=== PATIENT | female | born 1965 | race African-American/Black ===

== ENCOUNTER 2019-12-04 22:14 | Emergency (ER) | payer OTHER ==
[2019-12-04] MEDS ORDERED: NA CHLORIDE 0.9% 1,000 ML ONE (22:50)
[2019-12-04] MEDS ORDERED: ONDANSETRON 4 MG/2 ML VIAL ONE (22:50)
[2019-12-04] MEDS ORDERED: FENTANYL CITR 100 MCG/2 ML ONE (22:51)
[2019-12-04 23:18] LABS: ALT/SGPT 205 U/L (12-78); AST/SGOT 64 U/L (15-37); Albumin 3.8 g/dL (3.4-5.0); Alkaline Phosphatase 133 U/L (45-117); BUN Blood Urea Nitrogen 10 mg/dL (7-18); Bicarbonate 31 mmol/L (21-32); Bilirubin Direct 0.3 mg/dL (0-0.2); Bilirubin Total 0.5 mg/dL (0.2-1.0); Glucose Level 124 mg/dL (74-106); Lipase 109 U/L (73-393); Potassium 4.1 mmol/L (3.5-5.1); Sodium Level 138 mmol/L (136-145)
[2019-12-04 23:44] LABS: Absolute Lymphocytes (CBC) 1.4 K/uL (0.7-4.9); Basophils % 0.4 % (0-1.3); Hematocrit 42.6 % (36.0-45.0); MPV 9.9 fL (7.6-11.3); RBC Red Blood Cell Count 5.88 M/uL (3.86-4.86)
[2019-12-05] MEDS ORDERED: FENTANYL CITR 100 MCG/2 ML ONE (01:34)
[2019-12-05] MEDS ORDERED: KETOROLAC 30 MG/ML INJ ONE (01:44)
--- NOTE | 2019-12-05 02:07 | EDPHYS ---
Physician Documentation [facility] Name: Milagros Blake Age: 54 yrs Sex: Female : 1965 Arrival Date: 12/04/2019 Time: 22:15 Bed 19 Private MD: ED Physician Doyle Cedillo HPI: 12/03 22:35 This 54 yrs old Black Female presents to ER via Ambulatory with complaints of Hernia jmm Pain. 22:35 The patient presents with abdominal pain in the epigastric area. Onset: The jmm symptoms/episode began/occurred gradually, 2 week(s) ago. The symptoms do not radiate. Associated signs and symptoms: Pertinent positives: nausea and vomiting, Pertinent negatives: diarrhea. The symptoms are described as achy. Modifying factors: The symptoms are alleviated by nothing, the symptoms are aggravated by. This is a 54 year old female with a history of hernia that presents to the ED with complaints of 2 weeks of ongoing epigatric abdominal pain. Pain has progressively worsened. Denies diarrhea. 1 episode of vomiting. . 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 - Social history:: Patient/guardian denies using alcohol, street drugs, tobacco products, Smoking status: Patient/guardian denies using. ROS: 22:35 Constitutional: Negative for fever, chills, and weight loss, Cardiovascular: Negative jmm for chest pain, palpitations, and edema, Respiratory: Negative for shortness of breath, cough, wheezing, and pleuritic chest pain. 22:35 Abdomen/GI: Positive for vomiting. 22:35 Back: Negative for radiated pain. 22:35 All other systems are negative. Exam: 22:35 Head/Face: atraumatic. Eyes: EOMI, no conjunctival erythema appreciated ENT: Moist jmm Mucus Membranes Neck: Trachea midline, Supple Chest/axilla: Normal chest wall appearance and motion. Cardiovascular: Regular rate and rhythm. No edema appreciated Respiratory: Normal respirations, no respiratory distress appreciated 22:35 Back: Normal ROM Skin: General appearance color normal MS/ Extremity: Moves all extremities, no obvious deformities appreciated, no edema noted to the lower extremities Neuro: Awake and alert, normal gait Psych: Behavior is normal, Mood is normal, Patient is cooperative and pleasant 22:35 Constitutional: The patient appears alert, awake, uncomfortable. 22:35 Abdomen/GI: Inspection: abdomen appears normal, Bowel sounds: normal, Palpation: soft, moderate abdominal tenderness, in the right upper quadrant. Vital Signs: 22:22 BP 131 / 100; Pulse 83; Resp 18; Temp 99.2; Pulse Ox 97% ; Pain 9/10; ll1 22:23 BP 131 / 100; Pulse 83; Resp 18; Temp 99.2; Pulse Ox 97% ; Weight 95.25 kg; Height 5 jv1 ft. 6 in. (167.64 cm); Pain 8/10; 12/04 00:42 BP 157 / 93; Pulse 85; Resp 18; Temp 98.9; Pulse Ox 99% ; Pain 7/10; jv1 01:40 BP 130 / 75; Pulse 88; Resp 18; Temp 98.5; Pulse Ox 98% ; jv1 02:56 BP 128 / 79; Pulse 89; Resp 18; Temp 98.5; Pulse Ox 99% on R/A; Pain 2/10; jv1 12/03 22:23 Body Mass Index 33.89 (95.25 kg, 167.64 cm) jv1 MDM: 12/03 22:[address] [facility] 12/04 02:03 Data reviewed: vital signs, nurses notes. Counseling: I had a detailed discussion with [facility] the patient and/or guardian regarding: the historical points, exam findings, and any diagnostic results supporting the discharge/admit diagnosis, lab results, radiology results, the need to transfer to another facility. ED course: I discussed the patient with Dr. Schumacher whom advised transfer due to no GI services at this hospital. I discussed the need for transfer with the patient whom would prefer [place] opposed to [facility] [place]. . 12/03 22:33 Order name: Basic Metabolic Panel; Complete Time: 23:31 [facility] 12/03 22:33 Order name: CBC with Diff; Complete Time: 23:46 [facility] 12/03 22:33 Order name: Creatinine for Radiology; Complete Time: 23:31 [facility] 12/03 22:33 Order name: Hepatic Function; Complete Time: 23:31 [facility] 12/03 22:33 Order name: Lipase; Complete Time: 23:31 [facility] 12/03 22:33 Order name: US Abdomen Limited [facility] 12/03 22:33 Order name: IV Saline Lock; Complete Time: 22:56 [facility] 12/03 22:33 Order name: Labs collected and sent; Complete Time: 22:56 [facility] 12/03 22:35 Order name: CT Abd/Pelvis - IV Contrast Only [facility] 12/03 22:33 Order name: Urine Dipstick-Ancillary (obtain specimen); Complete Time: 01:37 [facility] Administered Medications: 12/03 22:54 Drug: Zofran (Ondansetron) 4 mg {Note: infused more than 2 mins.} Route: IVP; Site: jv1 right antecubital; 23:51 Follow up: Response: No adverse reaction; Nausea is decreased jv1 22:54 Drug: fentaNYL (PF) 50 mcg Route: IVP; Site: right antecubital; jv1 23:51 Follow up: Response: No adverse reaction; Pain is decreased jv1 22:54 Drug: NS 0.9% 1000 ml Route: IV; Rate: 1 bolus; Site: right antecubital; jv1 12/04 00:41 Follow up: Response: No adverse reaction; IV Status: Completed infusion jv1 01:30 Drug: fentaNYL (PF) 50 mcg Route: IVP; Site: right antecubital; jv1 02:39 Follow up: Response: No adverse reaction; Pain is decreased jv1 01:45 Drug: Ketorolac 30 mg Route: IVP; Site: right antecubital; jv1 02:39 Follow up: Response: No adverse reaction; Pain is decreased jv1 Disposition: 07:41 Co-signature as Attending Physician, Doyle Cedillo MD I agree with the assessment and [facility] plan of care. Disposition: 12/05/19 02:06 Transfer ordered to Other Acute Care Facility. Diagnosis is Acute cholecystitis. - Reason for transfer: Higher level of care. - Accepting physician is FLOYD Manzanares. - Condition is Stable. - Problem is new. - Symptoms are unchanged. Signatures: Dispatcher [employer] Doyle Garcia MD MD cha Mickail, Joel, PA PA [facility] Jackie Castañeda RN RN jv1 Eddi Chan RN RN ll1 Corrections: (The following items were deleted from the chart) 03:34 02:06 12/05/2019 02:06 Transfer ordered to Other Acute Care Facility. Diagnosis is jv1 Acute cholecystitis. Reason for transfer: Higher level of care. Accepting physician is FLOYD Manzanares. Condition is Stable. Problem is new. Symptoms are unchanged. teena
--- NOTE | 2019-12-05 02:07 | ER ---
Nurse's Notes [facility] Name: Milagros Blake Age: 54 yrs Sex: Female : 1965 Arrival Date: 12/04/2019 Time: 22:15 Bed 19 Private MD: Diagnosis: Acute cholecystitis Presentation: 12/03 22:22 Chief complaint: Patient states: Upper abdominal pain for 2 weeks. + N/V. States she ll1 believes it is hernia pain. Coronavirus screen: Patient denies fever greater than 100.4F, cough, shortness of breath, or difficulty breathing. Proceed with normal triage process. Ebola Screen: Patient denies travel to an Ebola-affected area in the 21 days before illness onset. Initial Sepsis Screen: Does the patient meet any 2 criteria? No. Patient's initial sepsis screen is negative. Risk Assessment: Do you want to hurt yourself or someone else? Patient reports no desire to harm self or others. 22:22 Method Of Arrival: Ambulatory ll1 22:22 Acuity: LELAND 3 ll1 23:09 Initial Sepsis Screen: Does the patient meet any 2 criteria? No. Patient's initial jv1 sepsis screen is negative. Does the patient have a suspected source of infection? No. Patient's initial sepsis screen is negative. Onset of symptoms was November 21, 2019. 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 - Social history:: Patient/guardian denies using alcohol, street drugs, tobacco products, Smoking status: Patient/guardian denies using. Screenin:24 Abuse screen: Denies threats or abuse. Nutritional screening: No deficits noted. ll1 Tuberculosis screening: No symptoms or risk factors identified. 23:05 Fall Risk None identified. jv1 Assessment: 23:00 General: Appears in no apparent distress. comfortable, well groomed, Behavior is calm, jv1 cooperative, appropriate for age. Pain: Complains of pain in right upper quadrant Pain does not radiate. Pain currently is 8 out of 10 on a pain scale. Quality of pain is described as aching, Pain began two weeks ago. Neuro: Level of Consciousness is awake, alert, obeys commands, Oriented to person, place, time, situation, Appropriate for age Market Director are equal bilaterally Moves all extremities. Full function. Cardiovascular: Denies chest pain, Heart tones S1 S2 present Capillary refill < 3 seconds. Respiratory: Airway is patent Respiratory effort is even, unlabored, Respiratory pattern is regular, symmetrical, Breath sounds are clear bilaterally. GI: Abdomen is round non-distended, Bowel sounds present X 4 quads. Abd is soft Abdomen is tender to palpation in right upper quadrant Reports nausea, vomiting. : No signs and/or symptoms were reported regarding the genitourinary system. EENT: No signs and/or symptoms were reported regarding the EENT system. Derm: No signs and/or symptoms reported regarding the dermatologic system. Musculoskeletal: Capillary refill < 3 seconds. 23:28 Reassessment: instructed on the need for urine sample, pt tried but said she cannot go jv1 yet. 23:51 Reassessment: Patient appears in no apparent distress at this time. No changes from jv1 previously documented assessment. Patient and/or family updated on plan of care and expected duration. Pain level reassessed. Patient is alert, oriented x 3, equal unlabored respirations, skin warm/dry/pink. pt taken to CT Patient states feeling better. 12/04 00:42 Reassessment: Patient appears in no apparent distress at this time. No changes from jv1 previously documented assessment. Patient and/or family updated on plan of care and expected duration. Pain level reassessed. Patient is alert, oriented x 3, equal unlabored respirations, skin warm/dry/pink. Patient states feeling better. 01:40 Reassessment: Patient appears in no apparent distress at this time. No changes from jv1 previously documented assessment. Patient and/or family updated on plan of care and expected duration. Pain level reassessed. Patient is alert, oriented x 3, equal unlabored respirations, skin warm/dry/pink. provider in the room with pt. 02:40 Reassessment: Patient appears in no apparent distress at this time. No changes from jv1 previously documented assessment. Patient and/or family updated on plan of care and expected duration. Pain level reassessed. Patient is alert, oriented x 3, equal unlabored respirations, skin warm/dry/pink. 02:50 Reassessment: called report to Domenico BHAKTA, [facility]. jv1 03:32 Reassessment: Reassessment: EMS came and got the pt for transfer. jv1 Vital Signs: 12/03 22:22 BP 131 / 100; Pulse 83; Resp 18; Temp 99.2; Pulse Ox 97% ; Pain 9/10; ll1 22:23 BP 131 / 100; Pulse 83; Resp 18; Temp 99.2; Pulse Ox 97% ; Weight 95.25 kg; Height 5 jv1 ft. 6 in. (167.64 cm); Pain 8/10; 12/04 00:42 BP 157 / 93; Pulse 85; Resp 18; Temp 98.9; Pulse Ox 99% ; Pain 7/10; jv1 01:40 BP 130 / 75; Pulse 88; Resp 18; Temp 98.5; Pulse Ox 98% ; jv1 02:56 BP 128 / 79; Pulse 89; Resp 18; Temp 98.5; Pulse Ox 99% on R/A; Pain 2/10; jv1 12/03 22:23 Body Mass Index 33.89 (95.25 kg, 167.64 cm) jv1 ED Course: 12/03 22:15 Patient arrived in ED. cl3 22:23 Triage completed. ll1 22:24 [facility] Hamilton [facility] jm 22:24 Doyle Cedillo MD is Attending Physician. jmm 22:24 Arm band placed on Patient placed in an exam room, on a stretcher. ll1 22:50 Inserted saline lock: 20 gauge in right antecubital area, using aseptic technique. ao Blood collected. 23:05 US Abdomen Limited In Process Unspecified. EDMS 23:05 Patient has correct armband on for positive identification. Bed in low position. Call jv1 light in reach. Side rails up X 1. 12/04 00:18 CT Abd/Pelvis - IV Contrast Only In Process Unspecified. EDMS 03:31 No provider procedures requiring assistance completed. Patient transferred, IV remains jv1 in place. Administered Medications: 12/03 22:54 Drug: Zofran (Ondansetron) 4 mg {Note: infused more than 2 mins.} Route: IVP; Site: jv1 right antecubital; 23:51 Follow up: Response: No adverse reaction; Nausea is decreased jv1 22:54 Drug: fentaNYL (PF) 50 mcg Route: IVP; Site: right antecubital; jv1 23:51 Follow up: Response: No adverse reaction; Pain is decreased jv1 22:54 Drug: NS 0.9% 1000 ml Route: IV; Rate: 1 bolus; Site: right antecubital; jv1 12/04 00:41 Follow up: Response: No adverse reaction; IV Status: Completed infusion jv1 01:30 Drug: fentaNYL (PF) 50 mcg Route: IVP; Site: right antecubital; jv1 02:39 Follow up: Response: No adverse reaction; Pain is decreased jv1 01:45 Drug: Ketorolac 30 mg Route: IVP; Site: right antecubital; jv1 02:39 Follow up: Response: No adverse reaction; Pain is decreased jv1 Outcome: 02:06 ER care complete, transfer ordered by . teena 03:31 Transferred by ground EMS to other acute care facility: [facility]. jv1 03:31 Condition: good 03:31 Instructed on the need for transfer. 03:34 Patient left the ED. jv1 Signatures: Dispatcher [employer] EDMS Hector Hamilton PA PA Ivan Aggarwal, RN RN Jackie Barrios RN RN Stacey Meraz cl3 Eddi Chan RN RN ll1 Corrections: (The following items were deleted from the chart) 12/03 23:53 23:28 Reassessment: instructed on the need for urine sample, pt tried but said she jv1 cannot go yet. jv1
[2019-12-05 03:47] VITALS: TEMP 98.5
[2019-12-05 03:48] VITALS: BP 128/79; O2SAT 99
--- NOTE | 2019-12-05 08:37 | RAD REPORT ---
EXAM DESCRIPTION: US - Abdomen Exam Limited - 12/04/2019 11:05 pm CLINICAL HISTORY: Abdominal pain. COMPARISON: None. FINDINGS: Gallstones. The gallbladder wall is not thickened. A gallstone is not seen. The biliary tree is normal caliber. IMPRESSION: Cholelithiasis without evidence of cholecystitis Two mild gallbladder distention
--- NOTE | 2019-12-05 11:10 | RAD REPORT ---
EXAM DESCRIPTION: CT - Abdomen Pelvis W Contrast - 12/05/2019 12:17 am CLINICAL HISTORY: The patient is 54 years old and is Female; ABD PAIN TECHNIQUE: Axial computed tomography images of the abdomen and pelvis with intravenous contrast. S agittal and coronal reformatted images were created and reviewed. This CT exam was performed using one or more of the following dose reduction techniques: automated exposure control, adjustment of t he mA and/or kV according to patient size, and/or use of iterative reconstruction technique. DLP: 1616 mGy*cm COMPARISON: None. FINDINGS: LUNG BASES: Dependent subsegmental atelectasis. No focal consolidation. HEART: Visualized heart is normal. ABDOMEN: LIVER: Small calcified granuloma in the left hepatic lobe. Hepatic steatosis. GALLBLADDER AND BILE DUCTS: Mild fluid distention of the gallbladder. Mild prominence of the commo n bile duct. No calcified stones. PANCREAS: Unremarkable. No mass. No ductal dilation. SPLEEN: Unremarkable. No splenomegaly. ADRENALS: Unremarkable. No mass. KIDNEYS AND URETERS: Unremarkable. No solid mass. No hydronephrosis. STOMACH AND BOWEL: Mild diverticulosis of the descending and sigmoid colon. No acute diverticuliti s. No obstruction. PELVIS: APPENDIX: The appendix is seen and is within normal limits. BLADDER: Unremarkable. No mass. REPRODUCTIVE: Prior hysterectomy. ABDOMEN and PELVIS: INTRAPERITONEAL SPACE: Unremarkable. No free air. No significant fluid collection. BONES/JOINTS: No acute fracture. No dislocation. SOFT TISSUES: Unremarkable. VASCULATURE: Unremarkable. No abdominal aortic aneurysm. LYMPH NODES: Unremarkable. No enlarged lymph nodes. IMPRESSION: 1. No acute abdominal or pelvic abnormality. 2. Distention of the gallbladder and biliary ductal dilatation without radiopaque intraluminal stone . Dedicated right upper quadrant ultrasound is recommended. 3. Mild diverticulosis of the descending and sigmoid colon. No acute diverticulitis. Electronically signed by: Ronan Bowles DO 12/05/2019 12:59 AM CDT Due to temporary technical issues with the PACS/Fluency reporting system, reports are being signed by the in house radiologist as a courtesy to ensure prompt reporting. The interpreting radiologist is fully responsible for the content of the report.
== END 2019-12-05 03:34 ==
LOC: ER 22:14
DX: K81.0 Acute cholecystitis (principal)
CPT/HCPCS: 96361; 85025; 80048; 36415; 80076; 83690; 74177; 76705; 96375; 96374; 99285; Q9967; J3010 ×2; J7030; J2405

== ENCOUNTER 2020-05-03 08:36 | Emergency (ER) | payer OTHER ==
--- NOTE | 2020-05-03 08:49 | EDPHYS ---
Physician Documentation [facility] Name: Milagros Blake Age: 55 yrs Sex: Female : 1965 Arrival Date: 05/03/2020 Time: 08:37 Bed 8 Private MD: ED Physician Alan London HPI: 05/03 08:53 This 55 yrs old Black Female presents to ER via Unassigned with complaints of Neck snw Pain, <24hrs Old, Shoulder Pain. 08:53 The patient or guardian complains of decreased range of motion, pain, spasm, tightness, snw tenderness. The symptoms are located on the right trapezius and right scapular area. Onset: The symptoms/episode began/occurred suddenly, 3 day(s) ago, and became persistent. Context: The problem was sustained at home, The neck injury/problem resulted from from unknown cause. Associated signs and symptoms: The patient has no apparent associated signs or symptoms. The pain does not radiate. Severity of symptoms: At their worst the symptoms were moderate. The patient has not experienced similar symptoms in the past. It is unknown whether or not the patient has recently seen a physician. 08:54 denies trauma. snw Historical: - Allergies: 09:09 No Known Allergies; jl7 - Home Meds: 09:09 None [Active]; jl7 - PMHx: 09:09 Hernia; jl7 - PSHx: 09:09 None; jl7 - Immunization history:: Adult Immunizations unknown. - Social history:: Smoking status: Patient denies any tobacco usage or history of. ROS: 08:51 Constitutional: Negative for fever, chills, and weight loss, Eyes: Negative for injury, snw pain, redness, and discharge, ENT: Negative for injury, pain, and discharge, Cardiovascular: Negative for chest pain, palpitations, and edema, Respiratory: Negative for shortness of breath, cough, wheezing, and pleuritic chest pain, Abdomen/GI: Negative for abdominal pain, nausea, vomiting, diarrhea, and constipation, Back: Negative for injury and pain, : Negative for injury, bleeding, discharge, and swelling, MS/Extremity: Negative for injury and deformity, Skin: Negative for injury, rash, and discoloration, Neuro: Negative for headache, weakness, numbness, tingling, and seizure, Psych: Negative for depression, anxiety, suicide ideation, homicidal ideation, and hallucinations. 08:51 Neck: Positive for pain with movement, pain at rest, swelling, tenderness. Exam: 08:50 Constitutional: This is a well developed, well nourished patient who is awake, alert, snw and in no acute distress. Head/Face: Normocephalic, atraumatic. Eyes: Pupils equal round and reactive to light, extra-ocular motions intact. Lids and lashes normal. Conjunctiva and sclera are non-icteric and not injected. Cornea within normal limits. Periorbital areas with no swelling, redness, or edema. ENT: Nares patent. No nasal discharge, no septal abnormalities noted. Tympanic membranes are normal and external auditory canals are clear. Oropharynx with no redness, swelling, or masses, exudates, or evidence of obstruction, uvula midline. Mucous membranes moist. Chest/axilla: Normal chest wall appearance and motion. Nontender with no deformity. No lesions are appreciated. Cardiovascular: Regular rate and rhythm with a normal S1 and S2. No gallops, murmurs, or rubs. Normal PMI, no JVD. No pulse deficits. Respiratory: Lungs have equal breath sounds bilaterally, clear to auscultation and percussion. No rales, rhonchi or wheezes noted. No increased work of breathing, no retractions or nasal flaring. Abdomen/GI: Soft, non-tender, with normal bowel sounds. No distension or tympany. No guarding or rebound. No evidence of tenderness throughout. Back: No spinal tenderness. No costovertebral tenderness. Full range of motion. Skin: Warm, dry with normal turgor. Normal color with no rashes, no lesions, and no evidence of cellulitis. Neuro: Awake and alert, GCS 15, oriented to person, place, time, and situation. Cranial nerves II-XII grossly intact. Motor strength 5/5 in all extremities. Sensory grossly intact. Cerebellar exam normal. Normal gait. Psych: Awake, alert, with orientation to person, place and time. Behavior, mood, and affect are within normal limits. 08:50 Neck: External neck: is normal, C-spine: appears grossly normal, Thyroid: appears normal, Trachea: is midline with no obvious abnormalities, ROM/movement: limited range of motion, that is moderate, when rotating to the right, nuchal rigidity, is not appreciated. 08:50 Musculoskeletal/extremity: ROM: limited active range of motion due to pain, in the right shoulder, Circulation is intact in all extremities. Sensation intact. Vital Signs: 08:45 BP 116 / 77; Pulse 90; Resp 19; Temp 97.9; Pulse Ox 100% ; Weight 95.25 kg; Pain 9/10; jl7 MDM: 08:43 Patient medically screened. rn 08:51 Data reviewed: vital signs, nurses notes. Data interpreted: Pulse oximetry: on room air snw is 97 %. Interpretation: normal. Counseling: I had a detailed discussion with the patient and/or guardian regarding: the historical points, exam findings, and any diagnostic results supporting the discharge/admit diagnosis, the need for outpatient follow up, to return to the emergency department if symptoms worsen or persist or if there are any questions or concerns that arise at home. Special discussion: Based on the history and exam findings, there is no indication for further emergent testing or inpatient evaluation. I discussed with the patient/guardian the need to see the primary care provider for further evaluation of the symptoms. Administered Medications: 09:03 Drug: Decadron 8 mg Route: PO; jl7 09:13 Follow up: Response: Medication administered at discharge. jl7 09:03 Drug: Valium 5 mg Route: PO; jl7 09:13 Follow up: Response: Medication administered at discharge. jl7 09:03 Drug: Pepcid 20 mg Route: PO; jl7 09:13 Follow up: Response: Medication administered at discharge. jl7 Disposition: 16:22 Co-signature as Attending Physician, Alan London MD. rn Disposition: 05/03/20 08:49 Discharged to Home. Impression: Radiculopathy, cervical region, Muscle spasm. - Condition is Stable. - Discharge Instructions: Cervical Radiculopathy, Muscle Cramps and Spasms, Muscle Strain, Cryotherapy, Heat Therapy, Radicular Pain. - Prescriptions for Prednisone 20 mg Oral Tablet - take 2 tablet by ORAL route once daily for 5 days; 10 tablet. orphenadrine citrate 100 mg Oral Tablet Sustained Release - take 1 tablet by ORAL route 2 times per day As needed; 20 tablet. - Work release form, Medication Reconciliation Form, Thank You Letter, Antibiotic Education, Prescription Opioid Use form. - Follow up: Emergency Department; When: As needed; Reason: Worsening of condition. Follow up: Private Physician; When: 2 - 3 days; Reason: Recheck today's complaints, Continuance of care, Re-evaluation by your physician. Signatures: Ching Lozano, RAEANN-C CERTIFIED SURGICAL FIRST ASSISTANT-Csnw Alan London MD MD rn Leal, Jahala, RN RN jl7 Corrections: (The following items were deleted from the chart) 09:13 08:49 05/03/2020 08:49 Discharged to Home. Impression: Radiculopathy, cervical region; jl7 Muscle spasm. Condition is Stable. Forms are Medication Reconciliation Form, Thank You Letter, Antibiotic Education, Prescription Opioid Use. Follow up: Emergency Department; When: As needed; Reason: Worsening of condition. Follow up: Private Physician; When: 2 - 3 days; Reason: Recheck today's complaints, Continuance of care, Re-evaluation by your physician. snw
[2020-05-03] MEDS ORDERED: DIAZEPAM 5 MG TABLET ONE (09:04)
[2020-05-03] MEDS ORDERED: FAMOTIDINE 20 MG TAB ONE (09:05)
[2020-05-03] MEDS ORDERED: dexAMETHasone 4 MG TAB ONE ×2 (09:05→09:11)
--- NOTE | 2020-05-03 09:14 | ER ---
Nurse's Notes [facility] Name: Milagros Blake Age: 55 yrs Sex: Female : 1965 Arrival Date: 05/03/2020 Time: 08:37 Bed 8 Private MD: Diagnosis: Radiculopathy, cervical region;Muscle spasm Presentation: 05/03 08:45 Chief complaint: Patient states: Right sided neck/shoulder pain x 3 days, worsening jl7 this morning. 08:45 Method Of Arrival: Wheelchair jl7 08:45 Coronavirus screen: Client denies travel out of the [place] in the last 14 days. At this jl7 time, the client does not indicate any symptoms associated with coronavirus-19. Ebola Screen: No symptoms or risks identified at this time. Initial Sepsis Screen: Does the patient meet any 2 criteria? No. Patient's initial sepsis screen is negative. Does the patient have a suspected source of infection? No. Patient's initial sepsis screen is negative. Risk Assessment: Do you want to hurt yourself or someone else? Patient reports no desire to harm self or others. Onset of symptoms was April 30, 2020. Care prior to arrival: None. Transition of care: patient was not received from another setting of care. 08:45 Acuity: LELAND 4 jl7 Triage Assessment: 08:45 General: Appears in no apparent distress. uncomfortable, Behavior is cooperative, jl7 anxious. Pain: Complains of pain in right scapular area and right trapezius. Neuro: Level of Consciousness is awake, alert, obeys commands, Oriented to person, place, time, situation. Cardiovascular: Patient's skin is warm and dry. Respiratory: Airway is patent Respiratory effort is even, unlabored, Respiratory pattern is regular, symmetrical. Derm: Skin is pink, warm \T\ dry. Historical: - Allergies: 09:09 No Known Allergies; jl7 - Home Meds: 09:09 None [Active]; jl7 - PMHx: 09:09 Hernia; jl7 - PSHx: 09:09 None; jl7 - Immunization history:: Adult Immunizations unknown. - Social history:: Smoking status: Patient denies any tobacco usage or history of. Screenin:11 Abuse screen: Denies threats or abuse. Denies injuries from another. Nutritional jl7 screening: No deficits noted. Tuberculosis screening: No symptoms or risk factors identified. Fall Risk None identified. Assessment: 09:11 General: See triage assessment. jl7 Vital Signs: 08:45 BP 116 / 77; Pulse 90; Resp 19; Temp 97.9; Pulse Ox 100% ; Weight 95.25 kg; Pain 9/10; jl7 ED Course: 08:37 Patient arrived in ED. as 08:42 Sergei Llanes RN is Primary Nurse. jl7 08:43 Alan Londno MD is Attending Physician. rn 08:43 [facility] snw 09:08 Triage completed. jl7 09:11 Arm band placed on right wrist. jl7 09:11 Patient has correct armband on for positive identification. Bed in low position. Call jl7 light in reach. Side rails up X 1. Pulse ox on. NIBP on. 09:11 No provider procedures requiring assistance completed. Patient did not have IV access jl7 during this emergency room visit. Administered Medications: 09:03 Drug: Decadron 8 mg Route: PO; jl7 09:13 Follow up: Response: Medication administered at discharge. jl7 09:03 Drug: Valium 5 mg Route: PO; jl7 09:13 Follow up: Response: Medication administered at discharge. jl7 09:03 Drug: Pepcid 20 mg Route: PO; jl7 09:13 Follow up: Response: Medication administered at discharge. jl7 Outcome: 08:49 Discharge ordered by . snw 09:13 Discharged to home ambulatory. jl7 09:13 Condition: stable 09:13 Discharge instructions given to patient, Instructed on discharge instructions, follow up and referral plans. medication usage, Demonstrated understanding of instructions, follow-up care, medications, Prescriptions given X 2. 09:13 Patient left the ED. jl7 Signatures: Ching Lozano FNP-C P[employer]AG[employer] SPECIALIST-CsnLaura Manning as Alan London MD MD rn Leal, Jahala, RN RN jl7 Corrections: (The following items were deleted from the chart) 09:11 08:45 Chief complaint: Patient states: Left sided neck/shoulder pain x 3 days, jl7 worsening this morning jl7
--- OUTSIDE RECORDS SUMMARY | 2020-05-03 09:21 | XMS REPORT | Continuity of Care Document ---
:1965 Author Organization [facility] t Address [phone] Care Team Providers Name Role Phone Radiology Attending Clinician Unavailable Payers Payer Name Policy Type Policy Number Effective Date Expiration Date S ource Problems This patient has no known problems. Allergies, Adverse Reactions, Alerts Allergy Allergy Status Severity Reaction(s) Onset Inactive Treating Comm ents Source Name Type Date Date Clinician morphine DA Active U [facility] 12-04 [place] 00:00: d 00 [facility] Medications This patient has no known medications. Procedures This patient has no known procedures. Encounters Start End Encounter Admission Attending Care Care Encounter Source Date/Time Date/Time Type Type Clinicians Facility Department ID 2019-05-15 2019-05-15 Hospital Radiology [facility] [id number] 08:21:39 23:59:00 Encounter [place] [id number] [place] [id number] [place] [id number] Results Test Description Test Time Test Comments Results Result Comments Source SURG 2019-12-10 14:00:00 --------RUN DATE: 12/10/19 [facility] [place] - LAB PAGE 1 RUN TIME: 1400 Specimen Inquiry RUN USER: INTERFACE --------PATIENT: BLANCO DAY LOC: [place] U #: [id number] AGE/SX: 54/F ROOM: [facility] RE12/07/19REG DR: Elijah Kelsey MD : 69 BED: 1 DIS: 12/09/19 STATUS: DIS IN TLOC: -------- SPEC #: [id number] RECD: 12/08/19 STATUS: IVONE REQ #: [id number] ROCIO: 12/05/19- SUBM DR: Elijah Kelsey MD ENTERED: 12/08/19 SP TYPE: SURG OTHR DR: No Primary or Family Physician Self Referred Froylan Rosen MD, Umair M MD Sweatt, William H MDORDERED: SURG PATH LVL 3 COPIES TO: No Primary or Family Physician [place] [id number] [address] [email or web address] Froylan Peñ[place]za [place] [address] [facility] [address] [address] Marbin Arroyo MD [address] [place] [address] Juanito Escamilla MD [address] [place] [address] HISTOLOGY: TISSUE ID BLK PCS LEW LEV PROCEDURE DISPOSITION ____ ___ ___ ___ GALLBLADDER, NO A 1- PROCEDURES: SURG PATH LVL 3 (12/08/19-114) TISSUES: A. GALLBLADDER, NOS - GALLBLADDER CONTINUED ON NEXT PAGE --------RUN DATE: 12/10/19 [facility] PAGE 2 RUN TIME: 1400 Specimen Inquiry RUN USER: INTERFACE --------SPEC #: [id number] PATIENT: BLACNO DAY #[id number] (Continued) CLINICAL HISTORY CHOLELITHIASIS CPT CODES CPT CODE(S): 07504 , , , , , , FINAL DIAGNOSIS Gallbladder, laparoscopic cholecystectomy: ACUTE CHOLECYSTITIS WITH ULCERATION AND INTESTINAL METAPLASIA CHOLELITHIASIS GROSS DESCRIPTION Gallbladder. Received in formalin is an intact gallbladder, 11.5 x 4.0 x 2.3 cm, with a wall, 0.5 cm in average thickness. The lumen contains 2 mL of green-brown slightly viscous bile and numerous, pale yellow-brown ovoid, multifaceted fragmented calculi, 8.0 x 5.5 x 1.2 cm in aggregate. The mucosa is brown with extensive areas of erythema. The gallbladder is by a septum into two compartments. No other gross lesion is identified. ba/nr Section code: A1 Shingle Cutter sections of gallbladder A2 Fibrous septum A3-A7 Additional branch sales and service representative sections of gallbladder Grossing performed at [facility] Pathology, [address] [place] [address], [address], [place] [address]. Railcar Carpenter: Jaziel Gómez M.D. MICROSCOPIC DESCRIPTION Gallbladder. The gallbladder mucosa demonstrates surface ulceration with acute inflammation, associated reactive changes and intestinal metaplasia. There is no evidence of dysplasia or malignancy. /pdb Signed SIGNATURE ON FILE Anca Last 12/10/19 1400 -------- END OF REPORT CBC W/AUTO DIFF 2019-12-09 06:43:00 Test Item Value Reference Range Interpretation Comme nts WHITE BLOOD CELL (test code = WBC) 5.0 K/mm3 3.5-11.0 N RED BLOOD CELL (test code = RBC) 4.89 M/mm3 4.70-6.10 N HEMOGLOBIN (test code = HGB) 11.5 G/DL 10.4-14.9 N HEMATOCRIT (test code = HCT) 34.8 % 31.5-44.1 N MEAN CELL VOLUME (test code = MCV) 71.2 Fl 84.5-98.6 L MEAN CELL HGB (test code = MCH) 23.5 pg 27.0-34.2 L MEAN CELL HGB CONCETRATION (test code = MCHC) 33.0 G/DL 31.5-34. 0 N RED CELL DISTRIBUTION WIDTH (test code = RDW) 14.9 SD 11.5-14. 5 H PLATELET COUNT (test code = PLT) 336.0 K/mm3 150-450 N MEAN PLATELET VOLUME (test code = MPV) 10.40 fL 7.0-10.5 N NEUTROPHIL % (test code = NT%) 55.5 % 40-76 LYMPHOCYTE % (test code = LY%) 32.3 % 20.5-51.1 N MONOCYTE % (test code = MO%) 8.6 % 1.7-9.3 N EOSINOPHIL % (test code = EO%) 3.4 % 0.0-6.0 N BASOPHIL % (test code = BA%) 0.2 % 0.0-2.0 N NEUTROPHIL # (test code = NT#) 2.76 K/mm3 1.8-7.6 N LYMPHOCYTE # (test code = LY#) 1.6 K/mm3 0.6-3.2 N MONOCYTE # (test code = MO#) 0.4 K/mm3 0.3-1.1 N EOSINOPHIL # (test code = EO#) 0.2 K/mm3 0.0-0.4 N BASOPHIL # (test code = BA#) 0.0 K/mm3 0.0-0.1 N MANUAL DIFF REQUIRED (test code = MDIFF) NO DIFF/SCN CRITERIA RBC [id number] 06:43:00 Test Item Value Reference Range Interpretation Comments ANISOCYTOSIS (test code = NORMAL NONE ANISO) PLATELET ESTIMATE (test ADEQUATE THOUSAND ADEQUATE code = PLTEST) PLATELET MORPHOLOGY (test NORMAL code = PLTMORPH) CBC W/AUTO [id number] 06:42:00 Test Item Value Reference Range Interpretation Comments WHITE BLOOD CELL (test code = 5.0 K/mm3 3.5-11.0 N WBC) RED BLOOD CELL (test code = RBC) 4.89 M/mm3 4.70-6.10 N HEMOGLOBIN (test code = HGB) 11.5 G/DL 10.4-14.9 N HEMATOCRIT (test code = HCT) 34.8 % 31.5-44.1 N MEAN CELL VOLUME (test code = 71.2 Fl 84.5-98.6 L MCV) MEAN CELL HGB (test code = MCH) 23.5 pg 27.0-34.2 L MEAN CELL HGB CONCETRATION (test 33.0 G/DL 31.5-34.0 N code = MCHC) RED CELL DISTRIBUTION WIDTH (test 14.9 SD 11.5-14.5 H code = RDW) PLATELET COUNT (test code = PLT) 336.0 K/mm3 150-450 N MEAN PLATELET VOLUME (test code = 10.40 fL 7.0-10.5 N MPV) NEUTROPHIL % (test code = NT%) 55.5 % 40-76 LYMPHOCYTE % (test code = LY%) 32.3 % 20.5-51.1 N MONOCYTE % (test code = MO%) 8.6 % 1.7-9.3 N EOSINOPHIL % (test code = EO%) 3.4 % 0.0-6.0 N BASOPHIL % (test code = BA%) 0.2 % 0.0-2.0 N NEUTROPHIL # (test code = NT#) 2.76 K/mm3 1.8-7.6 N LYMPHOCYTE # (test code = LY#) 1.6 K/mm3 0.6-3.2 N MONOCYTE # (test code = MO#) 0.4 K/mm3 0.3-1.1 N EOSINOPHIL # (test code = EO#) 0.2 K/mm3 0.0-0.4 N BASOPHIL # (test code = BA#) 0.0 K/mm3 0.0-0.1 N MANUAL DIFF REQUIRED (test code = NO DIFF/SCN CRITERIA MDIFF) CBC W/AUTO [id number] 06:42:00 Test Item Value Reference Range Interpretation Comments WHITE BLOOD CELL (test code = 5.0 K/mm3 3.5-11.0 N WBC) RED BLOOD CELL (test code = RBC) 4.89 M/mm3 4.70-6.10 N HEMOGLOBIN (test code = HGB) 11.5 G/DL 10.4-14.9 N HEMATOCRIT (test code = HCT) 34.8 % 31.5-44.1 N MEAN CELL VOLUME (test code = 71.2 Fl 84.5-98.6 L MCV) MEAN CELL HGB (test code = MCH) 23.5 pg 27.0-34.2 L MEAN CELL HGB CONCETRATION (test 33.0 G/DL 31.5-34.0 N code = MCHC) RED CELL DISTRIBUTION WIDTH (test 14.9 SD 11.5-14.5 H code = RDW) PLATELET COUNT (test code = PLT) 336.0 K/mm3 150-450 N MEAN PLATELET VOLUME (test code = 10.40 fL 7.0-10.5 N MPV) NEUTROPHIL % (test code = NT%) 55.5 % 40-76 LYMPHOCYTE % (test code = LY%) 32.3 % 20.5-51.1 N MONOCYTE % (test code = MO%) 8.6 % 1.7-9.3 N EOSINOPHIL % (test code = EO%) 3.4 % 0.0-6.0 N BASOPHIL % (test code = BA%) 0.2 % 0.0-2.0 N NEUTROPHIL # (test code = NT#) 2.76 K/mm3 1.8-7.6 N LYMPHOCYTE # (test code = LY#) 1.6 K/mm3 0.6-3.2 N MONOCYTE # (test code = MO#) 0.4 K/mm3 0.3-1.1 N EOSINOPHIL # (test code = EO#) 0.2 K/mm3 0.0-0.4 N BASOPHIL # (test code = BA#) 0.0 K/mm3 0.0-0.1 N MANUAL DIFF REQUIRED (test code = NO DIFF/SCN CRITERIA MDIFF) CBC W/AUTO [id number] 06:29:00 Test Item Value Reference Range Interpretation Comments WHITE BLOOD CELL (test code = 5.0 K/mm3 3.5-11.0 N WBC) RED BLOOD CELL (test code = RBC) 4.89 M/mm3 4.70-6.10 N HEMOGLOBIN (test code = HGB) 11.5 G/DL 10.4-14.9 N HEMATOCRIT (test code = HCT) 34.8 % 31.5-44.1 N MEAN CELL VOLUME (test code = 71.2 Fl 84.5-98.6 L MCV) MEAN CELL HGB (test code = MCH) 23.5 pg 27.0-34.2 L MEAN CELL HGB CONCETRATION (test 33.0 G/DL 31.5-34.0 N code = MCHC) RED CELL DISTRIBUTION WIDTH (test 14.9 SD 11.5-14.5 H code = RDW) PLATELET COUNT (test code = PLT) 336.0 K/mm3 150-450 N MEAN PLATELET VOLUME (test code = 10.40 fL 7.0-10.5 N MPV) NEUTROPHIL % (test code = NT%) % 40-76 LYMPHOCYTE % (test code = LY%) % 20.5-51.1 N MONOCYTE % (test code = MO%) % 1.7-9.3 N EOSINOPHIL % (test code = EO%) % 0.0-6.0 N BASOPHIL % (test code = BA%) % 0.0-2.0 N NEUTROPHIL # (test code = NT#) K/mm3 1.8-7.6 N LYMPHOCYTE # (test code = LY#) K/mm3 0.6-3.2 N MONOCYTE # (test code = MO#) K/mm3 0.3-1.1 N EOSINOPHIL # (test code = EO#) K/mm3 0.0-0.4 N BASOPHIL # (test code = BA#) K/mm3 0.0-0.1 N MANUAL DIFF REQUIRED (test code = DIFF/SCN CRITERIA MDIFF) COMPREHENSIVE METABOLIC [id number] 06:20:00 Test Item Value Reference Range Interpretation Comments SODIUM (test code = NA) 142 mmol/L 134-147 N POTASSIUM (test code = 3.7 mmol/L 3.4-5.0 N K) CHLORIDE (test code = 108 mmol/L 100-108 N CL) CARBON DIOXIDE (test 27 mmol/L 21-32 N code = CO2) ANION GAP (test code = 7.0 GAP calc 4.0-15.0 N GAP) GLUCOSE (test code = 108 MG/DL 70-110 N GLU) BLOOD UREA NITROGEN 3 MG/DL 7-18 L (test code = BUN) GLOMERULAR FILTRATION >=60 max estimate >60 RATE (test code = GFR) estGFR CREATININE (test code = 0.6 MG/DL 0.6-1.0 N CREAT) TOTAL PROTEIN (test code 6.2 G/DL 6.4-8.2 L = PROT) ALBUMIN (test code = 2.5 G/DL 3.4-5.0 L ALB) GLOBULIN (test code = 3.7 GM/dL GLOB) ALBUMIN/GLOBULIN RATIO 0.7 RATIO 1.2-2.2 L (test code = A/G) CALCIUM (test code = CA) 8.9 MG/DL 8.5-10.1 N BILIRUBIN TOTAL (test 0.60 MG/DL 0.2-1.2 N code = BILT) SGOT/AST (test code = 68 Unit/L 15-37 H AST) SGPT/ALT (test code = 154 Unit/L 12-78 H ALT) ALKALINE PHOSPHATASE 144 Unit/L 45-117 H TOTAL (test code = ALKP) - XR [id number] 16:12:00 Name: BLANCO DAY [facility]ly [facility] : 1965 Age/S: 54 / F [address] [address] [place] Unit #: [id number] Loc: [place] [address] Phys: Elijah Kelsey MD Acct: [id number] Dis Date: Status: ADM IN PHONE #: [phone] Exam Date: 12/08/2019 1500 FAX #: Reason: ERCP EXAMS: CPT: [id number] XR ERCP [id number] Fluoro Time: 115 SEC DAP (Gy m2): Air Kerma (mGy): Location: B2 EXAM: - XR ERCP HISTORY: ERCP COMPARISON: None available time of interpretation. FINDINGS: Intraoperative fluoroscopy was provided for ERCP. Radiologist was not present forthe procedure. 7 fluoroscopy images were obtained. Please see surgical report. IMPRESSION: 1. As above. Fluoroscopy time: 115.0 seconds Cumulative dose: 34.64 mGy at 1612 Reported and signed by: Victor M Gr M.D. CC: Elijah Kelsey MD PAGE 1 Signed Report Name: BLANCO DAY : 1965 Age/S: 54 / F [address] [address] [place] Unit #: [id number] Loc: [place] [address] Phys: Elijah Kelsey MD Acct: [id number] Dis Date: Status: ADM IN PHONE #: [phone] Exam Date: 12/08/2019 1500 FAX #: Reason: ERCP EXAMS: CPT: [id number] XR ERCP 80107 Fluoro Time: 115 SEC DAP (Gy m2): Air Kerma (mGy): <Continued> Technologist: Mary Beltran, RT(R)Trnscb Date/Time: 12/08/2019 (1611) [email or web address] Orig Print D/T: S: 12/08/2019 (0355) PAGE 2 Signed ReportCBC W/AUTO [id number] 05:51:00 Test Item Value Reference Range Interpretation Comments WHITE BLOOD CELL (test 4.9 K/mm3 3.5-11.0 N code = WBC) RED BLOOD CELL (test 4.76 M/mm3 4.70-6.10 N code = RBC) HEMOGLOBIN (test code 11.2 G/DL 10.4-14.9 N = HGB) HEMATOCRIT (test code 33.9 % 31.5-44.1 N = HCT) MEAN CELL VOLUME (test 71.2 Fl 84.5-98.6 L code = MCV) MEAN CELL HGB (test 23.5 pg 27.0-34.2 L code = MCH) MEAN CELL HGB 33.0 G/DL 31.5-34.0 N CONCETRATION (test code = MCHC) RED CELL DISTRIBUTION 14.9 SD 11.5-14.5 H WIDTH (test code = RDW) PLATELET COUNT (test 316.0 K/mm3 150-450 N code = PLT) MEAN PLATELET VOLUME 10.70 fL 7.0-10.5 H (test code = MPV) NEUTROPHIL % (test 47.6 % 40-76 code = NT%) LYMPHOCYTE % (test 39.1 % 20.5-51.1 N code = LY%) MONOCYTE % (test code 10.3 % 1.7-9.3 H = MO%) EOSINOPHIL % (test 2.4 % 0.0-6.0 N code = EO%) BASOPHIL % (test code 0.6 % 0.0-2.0 N = BA%) NEUTROPHIL # (test 2.34 K/mm3 1.8-7.6 N code = NT#) LYMPHOCYTE # (test 1.9 K/mm3 0.6-3.2 N code = LY#) MONOCYTE # (test code 0.5 K/mm3 0.3-1.1 N = MO#) EOSINOPHIL # (test 0.1 K/mm3 0.0-0.4 N code = EO#) BASOPHIL # (test code 0.0 K/mm3 0.0-0.1 N = BA#) MANUAL DIFF REQUIRED NO DIFF/SCN CRITERIA SLIDE R EVIEW (test code = MDIFF) CONSISTA NT WITH AUTO DIFFERENTIAL. CBC W/AUTO [id number] 05:51:00 Test Item Value Reference Range Interpretation Comments WHITE BLOOD CELL (test 4.9 K/mm3 3.5-11.0 N code = WBC) RED BLOOD CELL (test 4.76 M/mm3 4.70-6.10 N code = RBC) HEMOGLOBIN (test code 11.2 G/DL 10.4-14.9 N = HGB) HEMATOCRIT (test code 33.9 % 31.5-44.1 N = HCT) MEAN CELL VOLUME (test 71.2 Fl 84.5-98.6 L code = MCV) MEAN CELL HGB (test 23.5 pg 27.0-34.2 L code = MCH) MEAN CELL HGB 33.0 G/DL 31.5-34.0 N CONCETRATION (test code = MCHC) RED CELL DISTRIBUTION 14.9 SD 11.5-14.5 H WIDTH (test code = RDW) PLATELET COUNT (test 316.0 K/mm3 150-450 N code = PLT) MEAN PLATELET VOLUME 10.70 fL 7.0-10.5 H (test code = MPV) NEUTROPHIL % (test 47.6 % 40-76 code = NT%) LYMPHOCYTE % (test 39.1 % 20.5-51.1 N code = LY%) MONOCYTE % (test code 10.3 % 1.7-9.3 H = MO%) EOSINOPHIL % (test 2.4 % 0.0-6.0 N code = EO%) BASOPHIL % (test code 0.6 % 0.0-2.0 N = BA%) NEUTROPHIL # (test 2.34 K/mm3 1.8-7.6 N code = NT#) LYMPHOCYTE # (test 1.9 K/mm3 0.6-3.2 N code = LY#) MONOCYTE # (test code 0.5 K/mm3 0.3-1.1 N = MO#) EOSINOPHIL # (test 0.1 K/mm3 0.0-0.4 N code = EO#) BASOPHIL # (test code 0.0 K/mm3 0.0-0.1 N = BA#) MANUAL DIFF REQUIRED NO DIFF/SCN CRITERIA SLIDE R TAIWOW (test code = MDIFF) CONSISTA NT WITH AUTO DIFFERENTIAL. RBC [id number] 05:51:00 Test Item Value Reference Range Interpretation Comments MICROCYTOSIS (test code = 2+ ON SCAN NONE A MICR) PLATELET ESTIMATE (test ADEQUATE THOUSAND ADEQUATE code = PLTEST) PLATELET MORPHOLOGY (test NORMALA code = PLTMORPH) CBC W/AUTO [id number] 05:51:00 Test Item Value Reference Range Interpretation Comments WHITE BLOOD CELL (test 4.9 K/mm3 3.5-11.0 N code = WBC) RED BLOOD CELL (test 4.76 M/mm3 4.70-6.10 N code = RBC) HEMOGLOBIN (test code 11.2 G/DL 10.4-14.9 N = HGB) HEMATOCRIT (test code 33.9 % 31.5-44.1 N = HCT) MEAN CELL VOLUME (test 71.2 Fl 84.5-98.6 L code = MCV) MEAN CELL HGB (test 23.5 pg 27.0-34.2 L code = MCH) MEAN CELL HGB 33.0 G/DL 31.5-34.0 N CONCETRATION (test code = MCHC) RED CELL DISTRIBUTION 14.9 SD 11.5-14.5 H WIDTH (test code = RDW) PLATELET COUNT (test 316.0 K/mm3 150-450 N code = PLT) MEAN PLATELET VOLUME 10.70 fL 7.0-10.5 H (test code = MPV) NEUTROPHIL % (test 47.6 % 40-76 code = NT%) LYMPHOCYTE % (test 39.1 % 20.5-51.1 N code = LY%) MONOCYTE % (test code 10.3 % 1.7-9.3 H = MO%) EOSINOPHIL % (test 2.4 % 0.0-6.0 N code = EO%) BASOPHIL % (test code 0.6 % 0.0-2.0 N = BA%) NEUTROPHIL # (test 2.34 K/mm3 1.8-7.6 N code = NT#) LYMPHOCYTE # (test 1.9 K/mm3 0.6-3.2 N code = LY#) MONOCYTE # (test code 0.5 K/mm3 0.3-1.1 N = MO#) EOSINOPHIL # (test 0.1 K/mm3 0.0-0.4 N code = EO#) BASOPHIL # (test code 0.0 K/mm3 0.0-0.1 N = BA#) MANUAL DIFF REQUIRED NO DIFF/SCN CRITERIA SLIDE R EVIEW (test code = MDIFF) CONSISTA NT WITH AUTO DIFFERENTIAL. COMPREHENSIVE METABOLIC [id number] 05:32:00 Test Item Value Reference Range Interpretation Comments SODIUM (test code = NA) 142 mmol/L 134-147 N POTASSIUM (test code = 3.6 mmol/L 3.4-5.0 N K) CHLORIDE (test code = 109 mmol/L 100-108 H CL) CARBON DIOXIDE (test 27 mmol/L 21-32 N code = CO2) ANION GAP (test code = 6.0 GAP calc 4.0-15.0 N GAP) GLUCOSE (test code = 116 MG/DL 70-110 H GLU) BLOOD UREA NITROGEN 5 MG/DL 7-18 L (test code = BUN) GLOMERULAR FILTRATION >=60 max estimate >60 RATE (test code = GFR) estGFR CREATININE (test code = 0.6 MG/DL 0.6-1.0 N CREAT) TOTAL PROTEIN (test code 6.3 G/DL 6.4-8.2 L = PROT) ALBUMIN (test code = 2.5 G/DL 3.4-5.0 L ALB) GLOBULIN (test code = 3.8 GM/dL GLOB) ALBUMIN/GLOBULIN RATIO 0.7 RATIO 1.2-2.2 L (test code = A/G) CALCIUM (test code = CA) 8.8 MG/DL 8.5-10.1 N BILIRUBIN TOTAL (test 1.10 MG/DL 0.2-1.2 N code = BILT) SGOT/AST (test code = 137 Unit/L 15-37 H AST) SGPT/ALT (test code = 162 Unit/L 12-78 H ALT) ALKALINE PHOSPHATASE 163 Unit/L 45-117 H TOTAL (test code = ALKP) CBC W/AUTO [id number] 05:18:00 Test Item Value Reference Range Interpretation Comments WHITE BLOOD CELL (test code = 4.9 K/mm3 3.5-11.0 N WBC) RED BLOOD CELL (test code = RBC) 4.76 M/mm3 4.70-6.10 N HEMOGLOBIN (test code = HGB) 11.2 G/DL 10.4-14.9 N HEMATOCRIT (test code = HCT) 33.9 % 31.5-44.1 N MEAN CELL VOLUME (test code = 71.2 Fl 84.5-98.6 L MCV) MEAN CELL HGB (test code = MCH) 23.5 pg 27.0-34.2 L MEAN CELL HGB CONCETRATION (test 33.0 G/DL 31.5-34.0 N code = MCHC) RED CELL DISTRIBUTION WIDTH (test 14.9 SD 11.5-14.5 H code = RDW) PLATELET COUNT (test code = PLT) 316.0 K/mm3 150-450 N MEAN PLATELET VOLUME (test code = 10.70 fL 7.0-10.5 H MPV) NEUTROPHIL % (test code = NT%) % 40-76 LYMPHOCYTE % (test code = LY%) % 20.5-51.1 N MONOCYTE % (test code = MO%) % 1.7-9.3 H EOSINOPHIL % (test code = EO%) % 0.0-6.0 N BASOPHIL % (test code = BA%) % 0.0-2.0 N NEUTROPHIL # (test code = NT#) K/mm3 1.8-7.6 N LYMPHOCYTE # (test code = LY#) K/mm3 0.6-3.2 N MONOCYTE # (test code = MO#) K/mm3 0.3-1.1 N EOSINOPHIL # (test code = EO#) K/mm3 0.0-0.4 N BASOPHIL # (test code = BA#) K/mm3 0.0-0.1 N MANUAL DIFF REQUIRED (test code = DIFF/SCN CRITERIA MDIFF) COMPREHENSIVE METABOLIC [id number] 05:20:00 Test Item Value Reference Range Interpretation Comments SODIUM (test code = NA) 142 mmol/L 134-147 N POTASSIUM (test code = 3.6 mmol/L 3.4-5.0 N K) CHLORIDE (test code = 109 mmol/L 100-108 H CL) CARBON DIOXIDE (test 28 mmol/L 21-32 N code = CO2) ANION GAP (test code = 5.0 GAP calc 4.0-15.0 N GAP) GLUCOSE (test code = 105 MG/DL 70-110 N GLU) BLOOD UREA NITROGEN 6 MG/DL 7-18 L (test code = BUN) GLOMERULAR FILTRATION >=60 max estimate >60 RATE (test code = GFR) estGFR CREATININE (test code = 0.6 MG/DL 0.6-1.0 N CREAT) TOTAL PROTEIN (test code 5.9 G/DL 6.4-8.2 L = PROT) ALBUMIN (test code = 2.5 G/DL 3.4-5.0 L ALB) GLOBULIN (test code = 3.4 GM/dL GLOB) ALBUMIN/GLOBULIN RATIO 0.7 RATIO 1.2-2.2 L (test code = A/G) CALCIUM (test code = CA) 8.2 MG/DL 8.5-10.1 L BILIRUBIN TOTAL (test 0.60 MG/DL 0.2-1.2 N code = BILT) SGOT/AST (test code = 27 Unit/L 15-37 N AST) SGPT/ALT (test code = 103 Unit/L 12-78 H ALT) ALKALINE PHOSPHATASE 91 Unit/L 45-117 N TOTAL (test code = ALKP) CBC W/AUTO [id number] 05:16:00 Test Item Value Reference Range Interpretation Comments WHITE BLOOD CELL (test code = 7.6 K/mm3 3.5-11.0 N WBC) RED BLOOD CELL (test code = RBC) 4.70 M/mm3 4.70-6.10 N HEMOGLOBIN (test code = HGB) 11.2 G/DL 10.4-14.9 N HEMATOCRIT (test code = HCT) 33.5 % 31.5-44.1 N MEAN CELL VOLUME (test code = 71.3 Fl 84.5-98.6 L MCV) MEAN CELL HGB (test code = MCH) 23.8 pg 27.0-34.2 L MEAN CELL HGB CONCETRATION (test 33.4 G/DL 31.5-34.0 N code = MCHC) RED CELL DISTRIBUTION WIDTH (test 14.9 SD 11.5-14.5 H code = RDW) PLATELET COUNT (test code = PLT) 294.0 K/mm3 150-450 N MEAN PLATELET VOLUME (test code = 10.80 fL 7.0-10.5 H MPV) NEUTROPHIL % (test code = NT%) 63.1 % 40-76 LYMPHOCYTE % (test code = LY%) 25.5 % 20.5-51.1 N MONOCYTE % (test code = MO%) 10.4 % 1.7-9.3 H EOSINOPHIL % (test code = EO%) 0.7 % 0.0-6.0 N BASOPHIL % (test code = BA%) 0.3 % 0.0-2.0 N NEUTROPHIL # (test code = NT#) 4.81 K/mm3 1.8-7.6 N LYMPHOCYTE # (test code = LY#) 1.9 K/mm3 0.6-3.2 N MONOCYTE # (test code = MO#) 0.8 K/mm3 0.3-1.1 N EOSINOPHIL # (test code = EO#) 0.1 K/mm3 0.0-0.4 N BASOPHIL # (test code = BA#) 0.0 K/mm3 0.0-0.1 N MANUAL DIFF REQUIRED (test code = NO DIFF/SCN CRITERIA MDIFF) COMPREHENSIVE METABOLIC [id number] 06:05:00 Test Item Value Reference Range Interpretation Comments SODIUM (test code = NA) 139 mmol/L 134-147 N POTASSIUM (test code = 3.4 mmol/L 3.4-5.0 N K) CHLORIDE (test code = 106 mmol/L 100-108 N CL) CARBON DIOXIDE (test 27 mmol/L 21-32 N code = CO2) ANION GAP (test code = 6.0 GAP calc 4.0-15.0 N GAP) GLUCOSE (test code = 122 MG/DL 70-110 H GLU) BLOOD UREA NITROGEN 7 MG/DL 7-18 N (test code = BUN) GLOMERULAR FILTRATION >=60 max estimate >60 RATE (test code = GFR) estGFR CREATININE (test code = 0.7 MG/DL 0.6-1.0 N CREAT) TOTAL PROTEIN (test code 6.1 G/DL 6.4-8.2 L = PROT) ALBUMIN (test code = 2.7 G/DL 3.4-5.0 L ALB) GLOBULIN (test code = 3.4 GM/dL GLOB) ALBUMIN/GLOBULIN RATIO 0.8 RATIO 1.2-2.2 L (test code = A/G) CALCIUM (test code = CA) 8.5 MG/DL 8.5-10.1 N BILIRUBIN TOTAL (test 0.60 MG/DL 0.2-1.2 N code = BILT) SGOT/AST (test code = 51 Unit/L 15-37 H AST) SGPT/ALT (test code = 145 Unit/L 12-78 H ALT) ALKALINE PHOSPHATASE 95 Unit/L 45-117 N TOTAL (test code = ALKP) CBC W/AUTO [id number] 05:55:00 Test Item Value Reference Range Interpretation Comments WHITE BLOOD CELL (test code = 13.0 K/mm3 3.5-11.0 H WBC) RED BLOOD CELL (test code = RBC) 4.88 M/mm3 4.70-6.10 N HEMOGLOBIN (test code = HGB) 11.6 G/DL 10.4-14.9 N HEMATOCRIT (test code = HCT) 34.4 % 31.5-44.1 N MEAN CELL VOLUME (test code = 70.5 Fl 84.5-98.6 L MCV) MEAN CELL HGB (test code = MCH) 23.8 pg 27.0-34.2 L MEAN CELL HGB CONCETRATION (test 33.7 G/DL 31.5-34.0 N code = MCHC) RED CELL DISTRIBUTION WIDTH (test 14.9 SD 11.5-14.5 H code = RDW) PLATELET COUNT (test code = PLT) 294.0 K/mm3 150-450 N MEAN PLATELET VOLUME (test code = 10.60 fL 7.0-10.5 H MPV) NEUTROPHIL % (test code = NT%) 78.7 % 40-76 H LYMPHOCYTE % (test code = LY%) 13.3 % 20.5-51.1 L MONOCYTE % (test code = MO%) 7.7 % 1.7-9.3 N EOSINOPHIL % (test code = EO%) 0.1 % 0.0-6.0 N BASOPHIL % (test code = BA%) 0.2 % 0.0-2.0 N NEUTROPHIL # (test code = NT#) 10.27 K/mm3 1.8-7.6 H LYMPHOCYTE # (test code = LY#) 1.7 K/mm3 0.6-3.2 N MONOCYTE # (test code = MO#) 1.0 K/mm3 0.3-1.1 N EOSINOPHIL # (test code = EO#) 0.0 K/mm3 0.0-0.4 N BASOPHIL # (test code = BA#) 0.0 K/mm3 0.0-0.1 N MANUAL DIFF REQUIRED (test code = NO DIFF/SCN CRITERIA MDIFF) - XR FLUOROSCOPY 0-60 [id number] 18:39:00 Name: GEE DAYTT [facility]ly [facility] : 1965 Age/S: 54 / F [address] [address] [place] Unit #: [id number] Loc: [place] [address] Phys: Elijah Kelsey MD Acct: [id number] Dis Date: Status: ADM IN PHONE #: [phone] Exam Date: 12/05/2019 1705 FAX #: Reason: LAPARASCO PIC CHOLECYSTECTOMY EXAMS: CPT: [id number] XR FLUOROSCOPY 0-60 MIN 49217 Fluoro Time: 35 DAP (Gy m2): Air Kerma (mGy): 8.51 Location: Impression: Fluoroscopy was provided by the radiology department with a C-arm in the OR and without the presence of a radiologist. Fluoroscopy time 35.2 seconds. Images 6. 6 fluoroscopic images were obtained, demonstrating a distended, bile duct secondary to a distal calculus. Some contrast extends into the bowel. Numerous gallbladder calculi are noted. See operative report for evaluation. Nelsyi artis Signed by Ren Patricio on 12/05/2019 at 1839 Reported and signed by: Rusty Patricio M.D. CC: Elijah Kelsey MD PAGE 1 Signed Report [facility] [place] [facility] 1965 Age/S: 54 / F [address] [address] [place] Unit #: [id number] Loc: [place] [address] Phys: Elijah Kelsey MD Acct: [id number] Dis Date: Status: ADM INPHONE #: [phone] Exam Date: 12/05/2019 1705 FAX #: Reason: LAPARASCOPIC CHOLECYSTECTOMY EXAMS: CPT: [id number] XR FLUOROSCOPY 0-60 MIN 05490 FluoroTime: 35 DAP (Gy m2): Air Kerma (mGy): 8.51 <Continued> Technologist: Jordana Delgadillo, RT(R) Trnscb Date/Time: 12/05/2019 (1838) [email or web address] Orig Print D/T: S: 12/05/2019 (1841) PAGE 2 Signed Report- MRI [id number] 14:31:00 FAX: Elijah Kelsey MD [phone] Camps: PM St: ADM [facility] [place] : 1965 Age/S: 54/F [address] [facility] Unit #: [id number] Loc: [address] [place] [address] Phys: Elijah Kelsey MD Acct: [id number] Dis Date: Status: ADM IN PHONE #: [phone] Exam Date: 12/05/2019 1329 FAX #: Reason: Elevated LFTs EXAMS: CPT: [id number] MRI MRCP 20408 EXAMINATION: - MRI MRCP. LOCATION: S17. HISTORY: Elevated LFTs, cholelithiasis. COMPARISON: None. TECHNIQUE: Routine MRI/MRCP imaging was performed of abdomen without intravenous contrast. 3D/MIP reconstruction images were obtained. FINDINGS: Numerous tiny calculi noted within somewhat distended gallbladder. Few calculi measuring up to 14 mm noted in gallbladder neck/proximal cystic duct (series 6 image 15). Gallbladder wall thickening versus edema is noted at 11 mm. 6 mm filling defect within distal CBD which measures 7 mm. Liver,spleen, pancreas, adrenals and kidneys appear unremarkable. No hydronephrosis. No abdominal bulky lymphadenopathy is identified. No free fluid. Visualized osseous structures demonstrate mild degenerative changes. 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 IMPRESSION: Choledocholithiasis with mildly enlarged CBD at 7 mm. Numerous tiny calculi within somewhat distended gallbladder with gallbladder wall thickening versus edema at 11 mm. Few calculi noted in gallbladder neck/proximal cystic duct measuring up to 14 mm. at 1431 Reported and signed by: Fadi Flores M.D. PAGE 1 Signed Report (CONTINUED) FAX: Elijah Kelsey MD [phone] Camps: St: ADM Name: BLANCO DAY [facility] : 1965 Age/S: 54/F [id number] [facility] Unit #: [id number] Loc: [address] [place] [address] Phys: Elijah Kelsey MD Acct: [id number] Dis Date: Status: ADM IN PHONE #: [phone] Exam Date: FAX #: Reason: Elevated LFTs EXAMS: CPT: [id number] MRI MRCP 83511 <Continued> CC: Elijah Kelsey MD Technologist: Dolly Nicholas RT(R)(MR) Transcribed Date/Time/By: 12/05/2019 ([id number]) :[email or web address] Orig Print D/T: S: 12/05/2019 ([id number]) PAGE 2 Signed ReportPROTHROMBIN TIME 2019-12-05 12:00:00 Test Item Value Reference Range Interpretation Comments PT PATIENT (test code = PTP) 12.6 SECONDS 9.3-12.9 N INTERNATIONAL NORMAL RATIO 1.11 INR Unit 0.8-1.2 N (test code = INR) COMPREHENSIVE METABOLIC [id number] 09:52:00 Test Item Value Reference Range Interpretation Comments SODIUM (test code = NA) 140 mmol/L 134-147 N POTASSIUM (test code = 3.5 mmol/L 3.4-5.0 N K) CHLORIDE (test code = 105 mmol/L 100-108 N CL) CARBON DIOXIDE (test 29 mmol/L 21-32 N code = CO2) ANION GAP (test code = 6.0 GAP calc 4.0-15.0 N GAP) GLUCOSE (test code = 95 MG/DL 70-110 N GLU) BLOOD UREA NITROGEN 8 MG/DL 7-18 N (test code = BUN) GLOMERULAR FILTRATION >=60 max estimate >60 RATE (test code = GFR) estGFR CREATININE (test code = 0.7 MG/DL 0.6-1.0 N CREAT) TOTAL PROTEIN (test code 7.2 G/DL 6.4-8.2 N = PROT) ALBUMIN (test code = 3.3 G/DL 3.4-5.0 L ALB) GLOBULIN (test code = 3.9 GM/dL GLOB) ALBUMIN/GLOBULIN RATIO 0.9 RATIO 1.2-2.2 L (test code = A/G) CALCIUM (test code = CA) 9.8 MG/DL 8.5-10.1 N BILIRUBIN TOTAL (test 0.80 MG/DL 0.2-1.2 N code = BILT) SGOT/AST (test code = 56 Unit/L 15-37 H AST) SGPT/ALT (test code = 176 Unit/L 12-78 H ALT) ALKALINE PHOSPHATASE 130 Unit/L 45-117 H TOTAL (test code = ALKP) [id number] 09:52:00 Test Item Value Reference Range Interpretation Comments LIPASE (test code = LIP) 98 Unit/L 114-286 L CBC W/AUTO [id number] 09:37:00 Test Item Value Reference Range Interpretation Comments WHITE BLOOD CELL (test code = 10.1 K/mm3 3.5-11.0 N WBC) RED BLOOD CELL (test code = RBC) 5.72 M/mm3 4.70-6.10 N HEMOGLOBIN (test code = HGB) 13.8 G/DL 10.4-14.9 N HEMATOCRIT (test code = HCT) 40.2 % 31.5-44.1 N MEAN CELL VOLUME (test code = 70.3 Fl 84.5-98.6 L MCV) MEAN CELL HGB (test code = MCH) 24.1 pg 27.0-34.2 L MEAN CELL HGB CONCETRATION (test 34.3 G/DL 31.5-34.0 H code = MCHC) RED CELL DISTRIBUTION WIDTH (test 15.5 SD 11.5-14.5 H code = RDW) PLATELET COUNT (test code = PLT) 306.0 K/mm3 150-450 N MEAN PLATELET VOLUME (test code = 10.60 fL 7.0-10.5 H MPV) NEUTROPHIL % (test code = NT%) 68.3 % 40-76 N LYMPHOCYTE % (test code = LY%) 23.0 % 20.5-51.1 N MONOCYTE % (test code = MO%) 8.3 % 1.7-9.3 N EOSINOPHIL % (test code = EO%) 0.2 % 0.0-6.0 N BASOPHIL % (test code = BA%) 0.2 % 0.0-2.0 N NEUTROPHIL # (test code = NT#) 6.92 K/mm3 1.8-7.6 N LYMPHOCYTE # (test code = LY#) 2.3 K/mm3 0.6-3.2 N MONOCYTE # (test code = MO#) 0.8 K/mm3 0.3-1.1 N EOSINOPHIL # (test code = EO#) 0.0 K/mm3 0.0-0.4 N BASOPHIL # (test code = BA#) 0.0 K/mm3 0.0-0.1 N MANUAL DIFF REQUIRED (test code = NO DIFF/SCN CRITERIA MDIFF)
[2020-05-06 05:04] VITALS: BP 116/77; TEMP 97.9; O2SAT 100
== END 2020-05-03 09:13 | disposition home or self-care (01) ==
LOC: ER 08:36
DX: M54.12 Radiculopathy, cervical region (principal); M62.838 Other muscle spasm
CPT/HCPCS: 99283; J8540 ×2